=== PATIENT | female | born 1960 | race Caucasian/White ===

== ENCOUNTER 2021-12-18 09:37 | Emergency (ER) | payer OTHER, BC, SELFPAY ==
--- NOTE | ~2021-12-18 | CT_ITS ---
EXAMINATION: CT brain wo con EXAM DATE: 12/18/2021 10:22 INDICATION: Head trauma. Fall. TECHNIQUE: Spiral CT of the head was performed without contrast. Axial, coronal and sagittal images were reviewed. The dose-length product (DLP) for this examination was 605.33 mGy-cm. The exposure w as tailored according to patient size, and iterative reconstruction (ASIR) was used as additional dos e reduction technique. There is no prior study for comparison. FINDINGS: There is no acute intraparenchymal hemorrhage. No evidence of intraparenchymal brain mass lesion. No evidence of acute infarction. There is no mass effect or midline shift. The ventricles are normal in size. There are no extra-axial collections. There are no acute calvarial fractures. T he orbits are unremarkable. Soft tissue is unremarkable. The visualized sinuses and mastoid air ceferino ls are well aerated. IMPRESSION: No acute intracranial findings. Reviewed, dictated and finalized at location B. HELPER
--- NOTE | ~2021-12-18 | XR_ITS ---
EXAMINATION: XR hip RT min 3V w AP pelvis EXAM DATE: 12/18/2021 10:50 INDICATION: Fall, right hip pain. TECHNIQUE: Right hip frontal, crosstable lateral and 'frog-leg' projections for interpretation. Front al projection pelvis. There is no prior study for comparison. FINDINGS: Smooth right hip femoral head contour, no radiographic evidence of avascular necrosis. The re are no acute pelvic or right hip fractures or dislocations identified. There is no subcutaneous g as. The soft tissue is unremarkable. There are no radiopaque foreign bodies. IMPRESSION: 1. Pelvis, right hip exam without acute osseous findings. Reviewed, dictated and finalized at location B. W BOSS
--- NOTE | ~2021-12-18 | XR_ITS ---
EXAMINATION: XR forearm RT 2V, XR wrist RT min 3V, XR hand RT min 3V DATE: 12/18/2021 10:50 INDICATION: Fall with pain to the distal right upper limb including the right wrist and third and fou rth fingers. TECHNIQUE: 1. AP an lateral views of the right forearm were obtained. 2. PA, lateral, oblique and navicular views of the right wrist were obtained. 2. PA and, lateral and oblique views of the right hand were obtained. COMPARISON: none FINDINGS: Intra-articular fracture involving the palmar aspect of the base of the right fourth middle phalanx. There is approximately 3-4 mm dorsal displacement of the remainder of the phalanx relative to both th e volar sided fragment as well as a similar degree of dorsal subluxation relative to the head of the proximal phalanx. Otherwise normal alignment from the right elbow through the right hand with no othe r acute fractures identified. Ossicle near the tip of the ulnar styloid process could be either degen erative in etiology, chronic nonunited fracture fragment or heterotopic ossification related to a chr onic soft tissue injury. 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 IMPRESSION: 1. Mildly displaced intra-articular fracture at the base of the right fourth middle phalanx with dors al subluxation of the middle phalanx relative to the head of the proximal phalanx. Reviewed, dictated and finalized at location A. [employer]ER IMPRESSION: 1. Mildly displaced intra-articular fracture at the base of the right fourth mi ddle phalanx with dorsal subluxation of the middle phalanx relative to the head of the proximal phalanx. IMPRESSION: 1. Mildly displaced intra-articular fracture at the base of the right fourth mi ddle phalanx with dorsal subluxation of the middle phalanx relative to the head of the proximal phalanx.
--- NOTE | ~2021-12-18 | CT_ITS ---
EXAMINATION: CT cervical spine wo con EXAM DATE: 12/18/2021 10:23 INDICATION: head trauma, fall. TECHNIQUE: Spiral CT of the cervical spine was performed without contrast. Axial images were reviewe d. Coronal and sagittal reformatted images cervical spine were also reviewed. The dose-length produc t (DLP) for this examination was 398.67 mGy-cm. The exposure was tailored according to patient size (auto mA exposure control), and iterative reconstruction (ASIR) was used as additional dose reduction technique. There is no prior study for comparison. FINDINGS: There is no evidence of acute cervical fracture. The odontoid process is intact. Pre-den s space is normal. Prevertebral soft tissue is normal. There are no soft tissue abnormalities ident ified. There is no disc space widening or traumatic vertebral body subluxation suspected. There is moderate disc disease C5-6 and 6-7. Significant left-sided cervical arthropathy and neural foraminal stenosis. A detailed level by level evaluation of spondylosis can be added as addendum if requested. IMPRESSION: 1. No acute cervical fracture. 2. Left-sided predominant cervical arthropathy. Reviewed, dictated and finalized at location B. STRIKER
[2021-12-18 09:34] VITALS: BP 152/109; PULSE 80; RESP 16; TEMP 37.3; O2SAT 96
[2021-12-18 11:22] VITALS: BP 143/71; PULSE 71; RESP 18; O2SAT 98
--- NOTE | 2021-12-18 12:51 | PC.NURSE ---
Distal PMS intact post splint application. Pt has good cap refill and no complaints.
[2021-12-18 13:29] VITALS: PULSE 78; RESP 18; O2SAT 98
--- NOTE | 2021-12-18 13:46 | ED.GENADULT ---
HPI - General Adult General Chief complaint: Fall Stated complaint: fall Time Seen by Provider: 12/18/21 09:51 Source: patient Mode of arrival: ambulatory Limitations: no limitations History of Present Illness HPI narrative: Patient is a 61-year-old female with chief complaint of pain to her head, right arm, right hip after miss stepping and falling with her head into some vague shrubbery while working. Patient reports that she also hit a bench. Patient reports she did not have any loss of consciousness. Patient denies any changes in vision or hearing, nausea, vomiting, speech changes or neurological deficit. Patient reports that she has been able to bear weight on her legs. Patient reports that she has some difficulty moving her third and fourth digits on her right hand. Patient also reports some swelling and bruising to her wrist. Patient denies any fevers, chills, cough, chest pain, shortness of breath or any other symptoms. Related Data Home Medications Medication Instructions Recorded Confirmed bupropion HCl mg PO 12/18/21 12/18/21 fluoxetine mg 12/18/21 losartan 12/18/21 Allergies Allergy/AdvReac Type Severity Reaction Status Date / Time Penicillins Allergy Rash Verified 12/18/21 09:42 Sulfa (Sulfonamide Allergy Rash Verified 12/18/21 09:43 Antibiotics) Review of Systems Review of Systems: CONSTITUTIONAL: Denies fever, chills, or sweats. EYES: Denies visual changes, redness, or discharge. ENT: Denies rhinorrhea, congestion, sore throat, or otalgia. CARDIOVASCULAR: Denies chest pain, palpitations, or edema. RESPIRATORY: Denies cough or dyspnea. GASTROINTESTINAL: Denies abdominal pain, nausea, vomiting, or diarrhea. GENITOURINARY: Denies dysuria or hematuria. SKIN: Denies rash or itching. MUSCULOSKELETAL: Reports right arm and right hip pain Denies back pain, joint pain, or myalgia. NEUROLOGIC: Reports mild headache, Denies numbness, dizziness, or weakness. PSYCHIATRIC: Denies anxiety or depression. Exam Narrative: GENERAL: Well-appearing, well-nourished, and in no acute distress. HEAD: Normocephalic, atraumatic. EYES: PERRLA and EOMI. ENT: Nares clear, no rhinorrhea or epistaxis. Mucous membranes moist. Oropharynx without tonsillar hypertrophy exudate or other lesions. Bilateral TMs pearly cunningham nonbulging. No hemotympanum NECK: Supple. Range of motion intact. No step-offs palpated. CHEST: Clear to auscultation. No respiratory distress. No wheezes rales or rhonchi HEART: Regular rate and rhythm. ABDOMEN: Soft, nontender, nondistended, normal active bowel sounds. EXTREMITIES: There is ecchymosis noted to the right wrist. Patient has difficulty moving the third and fourth digits of the right hand. pulses to right wrist intact. No tenderness proximal to right forearm. no groin tenderness. Patient reports some tenderness with palpation of lateral aspect of right hip. Normal range of motion. No edema. SKIN: Eczema noted to left anterior soliman. Warm, dry, no rash. NEURO: No focal deficits. Alert and oriented x3. PSYCH: Normal mood and affect. Course Vital Signs Vital signs: Vital Signs Temperature 99.1 F 12/18/21 09:34 Pulse Rate 80 12/18/21 09:34 Respiratory Rate 16 12/18/21 09:34 Blood Pressure 152/109 H 12/18/21 09:34 Pulse Oximetry 96 12/18/21 09:34 Temperature 99.1 F 12/18/21 09:34 Pulse Rate 78 12/18/21 13:29 Respiratory Rate 18 12/18/21 13:29 Blood Pressure 143/71 H 12/18/21 11:22 Pulse Oximetry 98 12/18/21 13:29 Procedures Orthopedic Splinting/Casting Injury #1: Side: right Upper Extremity Injury Location: hand Upper Extremity Immobilizer: ulnar gutter Splint: customized in ED OCL: ulnar gutter Pre-Procedure Neuro Vascular Exam: normal Post-Procedure Neuro Vascular Exam: normal Additional Comments: Patient tolerated splinting well. D/C instructions and f/u instructions discussed. Medical Decision M
== END 2021-12-18 13:40 | disposition home or self-care (01) ==
PROVIDERS: Emergency Provider Emergency Medicine
DX: S62.604A Fracture of unspecified phalanx of right ring finger, initial encounter for closed fracture (principal); W01.0XXA Fall on same level from slipping, tripping and stumbling without subsequent striking against object, initial encounter
CPT/HCPCS: 29125; 70450; 72125; 73090; 73110; 73130; 73502; 99284